=== PATIENT | male | born 1960 | race Caucasian/White ===

== ENCOUNTER 2017-01-23 11:32 | Emergency (ER) | payer OTHER ==
[2017-01-23] MEDS ORDERED: Sodium Chloride 0.9% 10 ML Syringe FLUSH PRN (11:58)
[2017-01-23] MEDS ORDERED: Sodium Chloride 0.9% 2.5 ML Syringe FLUSH PRN (11:58)
--- NOTE | 2017-01-23 12:08 | EDM.PDOC ---
ED HPI GENERAL MEDICAL PROBLEM - General Chief Complaint: Gastrointestinal Problem Stated Complaint: VOMITING Time Seen by Provider: 01/23/17 12:01 Source of Information: Reports: Patient History Limitations: Reports: No Limitations - History of Present Illness INITIAL COMMENTS - FREE TEXT/NARRATIVE: HISTORY AND PHYSICAL: []48-year-old male presenting with nausea and vomiting 4 days has vomited 4 times today History of Present Illness: []Patient started having difficulties on Wednesday before Thanks 4 days ago multiple episodes of vomiting unable to take down any fluids Review of Systems: As per history of present illness and below otherwise all systems reviewed and negative. Past medical history: As per history of present illness and as reviewed below otherwise noncontributory. Surgical history: As per history of present illness and as reviewed below otherwise noncontributory. Social history: No reported history of drug or alcohol abuse. Family history: As per history of present illness and as reviewed below otherwise noncontributory. Physical exam: Alert and oriented male. He has been complaining of having chills. Unable to keep fluids down answering questions in full sentences. Denies any diarrhea. HEENT: Atraumatic, normocehpalic, pupils reactive, negative for conjunctival pallor or scleral icterus, mucous membranes moist, throat clear, neck supple, nontender, trachea midline. Lungs: Clear to auscultation, breath sounds equal bilaterally, chest non tender. Heart: S1S2, regular, negative for clicks, rubs, or JVD. Abdomen: Soft, nondistended, nontender. Negative for masses or hepatossplenmegaly. Negative for costovertebral tenderness. Pelvis: Stable nontender. Genitourinary: Deferred. Rectal: Deferred Extremities: Atraumatic, negative for cords or calf pain. Neurovascular unremarkable. Neuro: Awake, alert, oriented. Cranial nerves II through XII unremarkable. Cerebellum unremarkable. Motor and sensory unremarkable throughout. Exam nonfocal. Patient tolerated all procedures well and he did eat some soup out vomiting Diagnostics: [CBC CMP lactic acid blood cultures [address] with contrast] Therapeutics: [1 L normal saline Zofran 4mg IV ] Impression: [Nausea vomiting dehydration] Plan: [Discharged to home Zofran 4 mg ODT per prescription 1 tab 3 times a day when necessary #12] All of with your primary care provider next week Definitive disposition and diagnosis as appropriate pending reevaluation and review of above. Onset: Sudden (4) Duration: Day(s): (4) Location: Reports: Abdomen abdominal pain Pain Score (Numeric/FACES): 8 - Related Data Allergies Allergy/AdvReac Type Severity Reaction Status Date / Time No Known Allergies Allergy Verified 01/23/17 11:53 Home Meds: Home Meds Apixaban [Eliquis] 1 tab PO DAILY 01/23/17 [History] Metoprolol Tartrate [Lopressor] 1 tab PO DAILY 01/23/17 [History] Ondansetron [Zofran ODT] 4 mg PO Q8H #12 tab.dis 01/23/17 [Rx] Past Medical History HEENT History: Reports: None Cardiovascular History: Reports: Afib Respiratory History: Reports: None Gastrointestinal History: Reports: None Genitourinary History: Reports: None Musculoskeletal History: Reports: None Neurological History: Reports: None Psychiatric History: Reports: None Endocrine/Metabolic History: Reports: None Hematologic History: Reports: None Immunologic History: Reports: None Oncologic (Cancer) History: Reports: None Dermatologic History: Reports: Other (See Below) Other Dermatologic History: Vein Surgery - Infectious Disease History Infectious Disease History: Reports: None - Past Surgical History Head Surgeries/Procedures: Reports: None Male Surgical History: Reports: Prostatectomy Social & Family History - Family History Family Medical History: Noncontributory - Tobacco Use Smoking Status *Q: Former Smoker Used Tobacco, but Quit: No - Caffeine Use Caffeine Use: Reports: Coffee - Recreational Drug Use Recreational Drug Use: No ED ROS GENERAL - Review of Systems Review Of Systems: ROS reveals no pertinent complaints other than HPI. ED EXAM, GI/ABD - Physical Exam Exam: See Below (See dictation) Course - Vital Signs Last Recorded V/S: Last Vital Signs Temp 37.2 C 01/23/17 14:18 Pulse 94 01/23/17 14:18 Resp 14 01/23/17 14:18 BP 127/94 H 01/23/17 14:18 Pulse Ox 97 01/23/17 14:18 - Orders/Labs/Meds Orders: Active Orders 24 hr Category Date Time Status Abdomen Pelvis w Cont [CT] Stat Exams 01/23/17 12:05 Taken CULTURE BLOOD [BC] Stat Lab 01/23/17 12:33 Received CULTURE BLOOD [BC] Stat Lab 01/23/17 13:21 Received Sodium Chloride 0.9% [Saline Flush] Med 01/23/17 11:58 Active 10 ml FLUSH ASDIRECTED PRN Sodium Chloride 0.9% [Saline Flush] Med 01/23/17 11:58 Active 2.5 ml FLUSH ASDIRECTED PRN Blood Culture x2 Reflex Set [OM.PC] Stat Oth 01/23/17 11:58 Ordered Saline Lock Insert [OM.PC] Stat Oth 01/23/17 11:58 Ordered Medication Orders Sodium Chloride (Saline Flush) 10 ml FLUSH ASDIRECTED PRN PRN Reason: Keep Vein Open Last Admin: 01/23/17 12:19 Dose: 10 ml Sodium Chloride (Saline Flush) 2.5 ml FLUSH ASDIRECTED PRN PRN Reason: Keep Vein Open Last Admin: 01/23/17 12:19 Dose: 2.5 ml Labs: Laboratory Tests 01/23/17 01/23/17 01/23/17 Range/Units 12:07 12:07 12:07 WBC 9.34 (4.0-11.0) K/uL RBC 5.09 (4.50-5.90) M/uL Hgb 17.6 H (13.0-17.0) g/dL Hct 48.9 (38.0-50.0) % MCV 96.1 (80.0-98.0) fL MCH 34.6 H (27.0-32.0) pg MCHC 36.0 (31.0-37.0) g/dL RDW Std Deviation 49.3 (28.0-62.0) fl RDW Coeff of Jarrod 14 (11.0-15.0) % Plt Count 143 L (150-400) K/uL MPV 11.00 (7.40-12.00) fL Neut % (Auto) 73.4 (48.0-80.0) % Lymph % (Auto) 14.7 L (16.0-40.0) % [place] % (Auto) 11.0 (0.0-15.0) % Eos % (Auto) 0.3 (0.0-7.0) % Baso % (Auto) 0.6 (0.0-1.5) % Neut # (Auto) 6.9 H (1.4-5.7) K/uL Lymph # (Auto) 1.4 (0.6-2.4) K/uL [place] # (Auto) 1.0 H (0.0-0.8) K/uL Eos # (Auto) 0.0 (0.0-0.7) K/uL Baso # (Auto) 0.1 (0.0-0.1) K/uL Nucleated RBC % 0.0 /100WBC Nucleated RBCs # 0 K/uL Lactate 2.6 H (0.20-2.00) mmol/L Sodium 133 L (136-146) mmol/L Potassium 3.2 L (3.5-5.1) mmol/L Chloride 96 L (98-110) mmol/L Carbon Dioxide 22 (21-31) mmol/L BUN 19 (6.0-23.0) mg/dL Creatinine 1.0 (0.6-1.5) mg/dL Est Cr Clr Drug Dosing 96.24 mL/min Estimated GFR (MDRD) > 60.0 ml/min Glucose 128 H (60-110) mg/dL Calcium 9.8 (8.8-10.8) mg/dL Total Bilirubin 3.5 H (0.1-1.5) mg/dL AST 34 (5-40) IU/L ALT 22 (8-54) IU/L Alkaline Phosphatase 71 (40-150) Total Protein 7.3 (6.0-8.0) g/dL Albumin 4.6 (3.5-5.0) g/dL Globulin 2.7 (2.0-3.5) g/dL Albumin/Globulin Ratio 1.7 (1.3-2.8) Urine Color Urine Appearance Urine pH (5.0-8.0) Ur Specific [place] (1.001-1.035) Urine Protein (NEGATIVE) mg/dL Urine Glucose (UA) (NEGATIVE) mg/dL Urine Ketones (NEGATIVE) mg/dL Urine Occult Blood (NEGATIVE) Urine Nitrite (NEGATIVE) Urine Bilirubin (NEGATIVE) Urine Urobilinogen (<2.0) EU/dL Ur Leukocyte Esterase (NEGATIVE) Urine RBC (0-2/HPF) Urine WBC (0-5/HPF) Ur Epithelial Cells (NONE-FEW) Urine Bacteria (NEGATIVE) 11/25/17 Range/Units 12:40 WBC (4.0-11.0) K/uL RBC (4.50-5.90) M/uL Hgb (13.0-17.0) g/dL Hct (38.0-50.0) % MCV (80.0-98.0) fL MCH (27.0-32.0) pg MCHC (31.0-37.0) g/dL RDW Std Deviation (28.0-62.0) fl RDW Coeff of Jarrod (11.0-15.0) % Plt Count (150-400) K/uL MPV (7.40-12.00) fL Neut % (Auto) (48.0-80.0) % Lymph % (Auto) (16.0-40.0) % [place] % (Auto) (0.0-15.0) % Eos % (Auto) (0.0-7.0) % Baso % (Auto) (0.0-1.5) % Neut # (Auto) (1.4-5.7) K/uL Lymph # (Auto) (0.6-2.4) K/uL [place] # (Auto) (0.0-0.8) K/uL Eos # (Auto) (0.0-0.7) K/uL Baso # (Auto) (0.0-0.1) K/uL Nucleated RBC % /100WBC Nucleated RBCs # K/uL Lactate (0.20-2.00) mmol/L Sodium (136-146) mmol/L Potassium (3.5-5.1) mmol/L Chloride (98-110) mmol/L Carbon Dioxide (21-31) mmol/L BUN (6.0-23.0) mg/dL Creatinine (0.6-1.5) mg/dL Est Cr Clr Drug Dosing mL/min Estimated GFR (MDRD) ml/min Glucose (60-110) mg/dL Calcium (8.8-10.8) mg/dL Total Bilirubin (0.1-1.5) mg/dL AST (5-40) IU/L ALT (8-54) IU/L Alkaline Phosphatase (40-150) Total Protein (6.0-8.0) g/dL Albumin (3.5-5.0) g/dL Globulin (2.0-3.5) g/dL Albumin/Globulin Ratio (1.3-2.8) Urine Color YELLOW Urine Appearance CLEAR Urine pH 6.5 (5.0-8.0) Ur Specific [place] <= 1.005 (1.001-1.035) Urine Protein NEGATIVE (NEGATIVE) mg/dL Urine Glucose (UA) NEGATIVE (NEGATIVE) mg/dL Urine Ketones NEGATIVE (NEGATIVE) mg/dL Urine Occult Blood NEGATIVE (NEGATIVE) Urine Nitrite NEGATIVE (NEGATIVE) Urine Bilirubin NEGATIVE (NEGATIVE) Urine Urobilinogen 1.0 (<2.0) EU/dL Ur Leukocyte Esterase NEGATIVE (NEGATIVE) Urine RBC 0-1 (0-2/HPF) Urine WBC 0-1 (0-5/HPF) Ur Epithelial Cells RARE (NONE-FEW) Urine Bacteria RARE (NEGATIVE) Meds: Medications Generic Name Dose Route Start Last Admin Trade Name Basim PRN Reason Stop Dose Admin Sodium Chloride 10 ml 01/23/17 11:58 01/23/17 12:19 Saline Flush FLUSH 10 ml ASDIRECTED PRN Administration Keep Vein Open Sodium Chloride 2.5 ml 01/23/17 11:58 01/23/17 12:19 Saline Flush FLUSH 2.5 ml ASDIRECTED PRN Administration Keep Vein Open Discontinued Medications Generic Name Dose Route Start Last Admin Trade Name Freq PRN Reason Stop Dose Admin Sodium Chloride 1,000 mls @ 999 mls/hr 01/23/17 12:15 01/23/17 12:16 Normal Saline IV 01/23/17 13:15 999 mls/hr .Bolus ONE Administration Sodium Chloride 1,000 mls @ 999 mls/hr 01/23/17 14:26 01/23/17 14:32 Normal Saline IV 01/23/17 15:26 999 mls/hr STAT ONE Administration Sodium Chloride 1,000 mls @ 999 mls/hr 01/23/17 15:09 01/23/17 15:30 Normal Saline IV 01/23/17 16:09 999 mls/hr STAT ONE Administration Iopamidol 100 ml 01/23/17 13:53 01/23/17 13:54 Isovue Multipack-370 (76%) IVPUSH 01/23/17 13:54 100 ml ONETIME STA Administration Ondansetron HCl 4 mg 01/23/17 12:13 01/23/17 12:15 Zofran IVPUSH 01/23/17 12:14 4 mg ONETIME ONE Administration Ondansetron HCl 4 mg 01/23/17 15:11 01/23/17 16:15 Zofran IVPUSH 01/23/17 15:12 4 mg ONETIME ONE Administration Departure - Departure Time of Disposition: 16:31 Disposition: Home, Self-Care 01 Condition: Good Clinical Impression: Dehydration Nausea & vomiting Qualifiers: Vomiting type: unspecified Vomiting Intractability: non-intractable Qualified Code(s): R11.2 - Nausea with vomiting, unspecified - Discharge Information Prescriptions: Ondansetron [Zofran ODT] 4 mg PO Q8H #12 tab.dis Instructions: Dehydration, Adult, [id number] Referrals: PCP,None [Primary Care Provider] - Forms: ED Department Discharge Additional Instructions: The following information is given to patients seen in the emergency department who are being discharged to home. This information is to outline your options for follow-up care. We provide all patients seen in our emergency department with a follow-up referral. The need for follow-up, as well as the timing and circumstances, are variable depending upon the specifics of your emergency department visit. If you don't have a primary care physician on staff, we will provide you with a referral. We always advise you to contact your personal physician following an emergency department visit to inform them of the circumstance of the visit and for follow-up with them and/or the need for any referrals to a consulting specialist. The emergency department will also refer you to a specialist when appropriate. This referral assures that you have the opportunity for followup care with a specialist. All of these measure are taken in an effort to provide you with optimal care, which includes your followup. Under all circumstances we always encourage you to contact your private physician who remains a resource for coordinating your care. When calling for followup care, please make the office aware that this follow-up is from your recent emergency room visit. If for any reason you are refused follow-up, please contact the [facility] emergency department at and asked to speak to the emergency department charge nurse. Zofran ODT 4 mg every 8 hours for nausea as needed #12 has been electronically sent to in the [facility] at [employer] - My Orders Last 24 Hours: My Active Orders 01/23/17 11:58 Sodium Chloride 0.9% [Saline Flush] 10 ml FLUSH ASDIRECTED PRN Sodium Chloride 0.9% [Saline Flush] 2.5 ml FLUSH ASDIRECTED PRN Blood Culture x2 Reflex Set [OM.PC] Stat Saline Lock Insert [OM.PC] Stat 01/23/17 12:05 Abdomen Pelvis w Cont [CT] Stat 01/23/17 12:33 CULTURE BLOOD [BC] Stat 01/23/17 13:21 CULTURE BLOOD [BC] Stat - Assessment/Plan Last 24 Hours: My Active Orders 01/23/17 11:58 Sodium Chloride 0.9% [Saline Flush] 10 ml FLUSH ASDIRECTED PRN Sodium Chloride 0.9% [Saline Flush] 2.5 ml FLUSH ASDIRECTED PRN Blood Culture x2 Reflex Set [OM.PC] Stat Saline Lock Insert [OM.PC] Stat 01/23/17 12:05 Abdomen Pelvis w Cont [CT] Stat 01/23/17 12:33 CULTURE BLOOD [BC] Stat 01/23/17 13:21 CULTURE BLOOD [BC] Stat
[2017-01-23] MEDS ORDERED: Ondansetron 4 MG/2 ML SDV IVPUSH ONE ×2 (12:13→15:11)
[2017-01-23] MEDS ORDERED: Sodium Chloride 0.9% 1,000 ML IV ONE ×3 (12:15→15:09)
[2017-01-23 13:03] LABS: CHLORIDE,CL 96 mmol/L (98-110); SODIUM,NA 133 mmol/L (136-146)
[2017-01-23] MEDS ORDERED: Iopamidol 755 MG/ML 500 ML Multipack Bottle IVPUSH STA (13:53)
--- NOTE | 2017-01-24 08:03 | CT ---
EXAM DATE: 01/23/17 PATIENT'S AGE: 56 Patient: CÉSAR LEACH Facility: [place], [place] Site . Site : 1960 Study: CT Abdomen/Pelvis [id number] 1:58:47 PM Ordering Physician: Doctor Maruicio Final Report: INDICATION: Nausea. Vomiting. Technique: Volumetric CT acquisition of the abdomen and pelvis following administration of 100 mL Isovue-370 intravenous contrast. Multiplanar reconstruction. Findings : The lung bases are clear. The liver and spleen are normal in size and without focal abnormality. The liver displays changes of diffuse fatty infiltration. No dilatation of the biliary system. The gallbladder is present. Pancreas and adrenal glands are normal. Kidneys normal in size, shape, and position. Both kidneys are functioning. No hydronephrosis. No renal masses or focal parenchymal abnormalities. Abdominal aorta normal in caliber and displays changes of atherosclerosis. No para-aortic or retrocrural lymphadenopathy. Normal bowel gas pattern. Thickening of the wall of the transverse colon. No inflammatory change in the adjacent fat. No strictures. Sigmoid diverticulosis without diverticulitis. The urinary bladder has a smooth contour. The fat planes surrounding the bladder and rectum are maintained. No free fluid in the abdomen and pelvis. No acute bony abnormality. Impression: 1. thickening of the wall of the transverse colon is a nonspecific finding which can be present in the face of inflammation or infection. No free air, free fluid, or abscess. 2. Sigmoid diverticulosis without diverticulitis. 3. Diffuse fatty infiltration of the liver. Please note that all CT scans at this facility use dose modulation, iterative reconstruction, and/or weight-based dosing when appropriate to reduce radiation dose to as low as reasonably achievable. Dictated by Anabella Pope MD @ Jan 23 2017 2:09PM (Electronic Signature) Report Signed by Proxy. [facility]
== END 2017-01-23 16:58 | disposition home or self-care (01) ==
LOC: MW.ED 11:32
DX: E86.0 Dehydration (principal); Z79.899 Other long term (current) drug therapy; Z87.891 Personal history of nicotine dependence
CPT/HCPCS: 36415; 74177; 80053; 81001; 83605; 85025; 87040; 96361; 96374; 96376; 99284; J2405; J7040; Q9967; 99283

== ENCOUNTER 2018-10-02 09:22 | Emergency (ER) | payer OTHER ==
[2018-10-02] MEDS ORDERED: Sodium Chloride 0.9% 10 ML Syringe FLUSH PRN (09:38)
[2018-10-02] MEDS ORDERED: Ondansetron 4 MG/2 ML SDV IVPUSH ONE (09:38)
[2018-10-02] MEDS ORDERED: Sodium Chloride 0.9% 2.5 ML Syringe FLUSH PRN (09:38)
[2018-10-02] MEDS ORDERED: Sodium Chloride 0.9% 1,000 ML IV ONE ×2 (09:38→10:44)
[2018-10-02] MEDS ORDERED: Pantoprazole 40 MG Vial IVPUSH ONE (09:38)
--- NOTE | 2018-10-02 09:43 | EDM.PDOC ---
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 The patient says that he had even more episodes of vomiting yesterday and has not been able to tolerate anything by mouth for the last 2 days and had a similar event for which she was seen here in December 2016. The patient lives in [facility] and is here working and back in 2017 he presented with 4 days of similar symptoms in a full workup including labs and a CAT scan of the abdomen and pelvis. I review those testing results. The CT revealed a fatty liver and a thickened transverse colon but no evidence for reasons for the vomiting. The patient tells me that when he went home to [place] he had an upper endoscopy and some other tests and his provider could not figure out why he had the vomiting. He says this is a very similar presentation. He says they felt hot and sweaty last night but he did not document a fever and he has had no chest pain or shortness of breath no urinary issues although he has had decreased urine output. He's had no black or bloody stools and no diarrhea. He says that he has some diffuse abdominal pain because of the vomiting but there was no pain prior to the nausea and vomiting. He says there is no one location that hurts him. He has no flank pain and he has no diagnosed GI or issues. He 's had no abdominal surgical history. He says that he drinks alcohol on a social basis and his last alcohol intake was last Wednesday Review of systems: As per history of present illness and below otherwise all systems reviewed and negative. Past medical history: As per history of present illness and as reviewed below otherwise noncontributory. Surgical history: As per history of present illness and as reviewed below otherwise noncontributory. Social history: No reported history of drug or alcohol abuse. Family history: As per history of present illness and as reviewed below otherwise noncontributory. Physical exam: General: Well-developed well-nourished man who is nontoxic and vital signs are noted by me HEENT: Atraumatic, normocephalic, pupils reactive, negative for conjunctival pallor or scleral icterus, mucous membranes pasty throat clear, neck supple, nontender, trachea midline. Lungs: Clear to auscultation, breath sounds equal bilaterally, chest nontender. Heart: S1S2, regular rhythm slightly tachycardic rate of my evaluation but no overt murmurs Abdomen: Soft, nondistended, nontender. Bowel sounds are slightly hypoactive and there is no tympany on percussion. There is no tenderness no rebound and no guarding on my examination Negative for masses or hepatosplenomegaly. Negative for costovertebral tenderness. Pelvis: Stable nontender. Genitourinary: Deferred. Rectal: Deferred. Extremities: Atraumatic, negative for cords or calf pain. Neurovascular unremarkable. Neuro: Awake, alert, oriented. Cranial nerves II through XII unremarkable. Cerebellum unremarkable. Motor and sensory unremarkable throughout. Exam nonfocal. Diagnostics: CBC CMP amylase lipase UA with reflex and culture Therapeutics: IV fluids Zofran Protonix The patient is currently finishing his first liter of IV fluids and will give a second liter. He says his nausea is much improved and when I re-question him about any abdominal pain he says that there was no precipitating abdominal discomfort and he has more of a generalized upper abdominal discomfort secondary to all the vomiting he has been doing. He is aware of his testing results and at this point I do not feel that imaging is indicated with the caveat that if he has any recurrent nausea and/or vomiting with a by mouth challenge that we will proceed to do radiologic evaluation. He is comfortable with the care plan at this point. He says he can again follow up with his provider back home in [place]. Patient has tolerated a by mouth challenge and looks much improved and feels much improved after the second liter of IV fluids. He is aware of the UA results and the urine culture will be sent. I will place him on Cipro and he does now to me that he had a prostate surgery and no longer has a prostate but he has never had a UTI before. I advised him to eat a bland diet and push hydration and for follow-up Impression: Vomiting and dehydration improving; UTI Definitive disposition and diagnosis as appropriate pending reevaluation and review of above. abd pain Pain Score (Numeric/FACES): 5 - Related Data Allergies Allergy/AdvReac Type Severity Reaction Status Date / Time No Known Allergies Allergy Verified 01/23/17 11:53 Home Meds: Home Meds Apixaban [Eliquis] 1 tab PO DAILY 01/23/17 [History] Metoprolol Tartrate [Lopressor] 1 tab PO DAILY 01/23/17 [History] Ondansetron [Zofran ODT] 4 mg PO Q8H #12 tab.dis 01/23/17 [Rx] Past Medical History HEENT History: Reports: None Cardiovascular History: Reports: Afib Respiratory History: Reports: None Gastrointestinal History: Reports: None Genitourinary History: Reports: None Musculoskeletal History: Reports: None Neurological History: Reports: None Psychiatric History: Reports: None Endocrine/Metabolic History: Reports: None Hematologic History: Reports: None Immunologic History: Reports: None Oncologic (Cancer) History: Reports: None Dermatologic History: Reports: Other (See Below) Other Dermatologic History: Vein Surgery - Infectious Disease History Infectious Disease History: Reports: None - Past Surgical History Head Surgeries/Procedures: Reports: None Male Surgical History: Reports: Prostatectomy Social & Family History - Family History Family Medical History: Noncontributory - Caffeine Use Caffeine Use: Reports: Coffee ED ROS GENERAL - Review of Systems Review Of Systems: ROS reveals no pertinent complaints other than HPI. ED EXAM, GENERAL - Physical Exam Exam: See Below (see dictation) Course - Vital Signs Last Recorded V/S: Last Vital Signs Temp 35.7 C 10/02/18 09:28 Pulse 93 10/02/18 09:28 Resp 18 10/02/18 09:28 BP 147/102 H 10/02/18 09:52 Pulse Ox 99 10/02/18 09:28 - Orders/Labs/Meds Orders: Active Orders 24 hr Category Date Time Status CULTURE URINE [RM] Stat Lab 10/02/18 12:16 Received Sodium Chloride 0.9% [Saline Flush] Med 10/02/18 09:38 Active 10 ml FLUSH ASDIRECTED PRN Sodium Chloride 0.9% [Saline Flush] Med 10/02/18 09:38 Active 2.5 ml FLUSH ASDIRECTED PRN Saline Lock Insert [OM.PC] Stat Oth 10/02/18 09:38 Ordered Medication Orders Sodium Chloride (Saline Flush) 10 ml FLUSH ASDIRECTED PRN PRN Reason: Keep Vein Open Sodium Chloride (Saline Flush) 2.5 ml FLUSH ASDIRECTED PRN PRN Reason: Keep Vein Open Labs: Laboratory Tests 10/02/18 10/02/18 10/02/18 Range/Units 09:42 09:42 12:16 WBC 13.11 H (4.0-11.0) K/uL RBC 5.32 (4.50-5.90) M/uL Hgb 18.3 H (13.0-17.0) g/dL Hct 50.2 H (38.0-50.0) % MCV 94.4 (80.0-98.0) fL MCH 34.4 H (27.0-32.0) pg MCHC 36.5 (31.0-37.0) g/dL RDW Std Deviation 46.8 (28.0-62.0) fl RDW Coeff of Jarrod 14 (11.0-15.0) % Plt Count 142 L (150-400) K/uL MPV 11.10 (7.40-12.00) fL Neut % (Auto) 83.4 H (48.0-80.0) % Lymph % (Auto) 6.2 L (16.0-40.0) % [place] % (Auto) 10.1 (0.0-15.0) % Eos % (Auto) 0.1 (0.0-7.0) % Baso % (Auto) 0.2 (0.0-1.5) % Neut # (Auto) 10.9 H (1.4-5.7) K/uL Lymph # (Auto) 0.8 (0.6-2.4) K/uL [place] # (Auto) 1.3 H (0.0-0.8) K/uL Eos # (Auto) 0.0 (0.0-0.7) K/uL Baso # (Auto) 0.0 (0.0-0.1) K/uL Nucleated RBC % 0.0 /100WBC Nucleated RBCs # 0 K/uL Sodium 132 L (136-148) mmol/L Potassium 3.9 (3.5-5.1) mmol/L Chloride 93 L (98-107) mmol/L Carbon Dioxide 28.5 (21.0-32.0) mmol/L BUN 20 H (7.0-18.0) mg/dL Creatinine 1.3 (0.8-1.3) mg/dL Est Cr Clr Drug Dosing 73.13 mL/min Estimated GFR (MDRD) 56.5 ml/min Glucose 193 H (74-106) mg/dL Calcium 10.1 (8.5-10.1) mg/dL Total Bilirubin 3.6 H (0.2-1.0) mg/dL AST 89 H (15-37) IU/L ALT 77 H (14-63) IU/L Alkaline Phosphatase 88 (46-116) U/L Total Protein 8.3 H (6.4-8.2) g/dL Albumin 5.0 (3.4-5.0) g/dL Globulin 3.3 (2.6-4.0) g/dL Albumin/Globulin Ratio 1.5 (0.9-1.6) Amylase 26 (25-115) U/L Lipase 229 (73-393) U/L Urine Color DARK YELLOW Urine Appearance SLT CLOUDY Urine pH 6.0 (5.0-8.0) Ur Specific [place] 1.025 (1.001-1.035) Urine Protein 100 H (NEGATIVE) mg/dL Urine Glucose (UA) 100 H (NEGATIVE) mg/dL Urine Ketones TRACE H (NEGATIVE) mg/dL Urine Occult Blood TRACE-INTACT H (NEGATIVE) Urine Nitrite POSITIVE H (NEGATIVE) Urine Bilirubin MODERATE H (NEGATIVE) Urine Ictotest NEGATIVE Urine Urobilinogen 2.0 H (<2.0) EU/dL Ur Leukocyte Esterase NEGATIVE (NEGATIVE) Urine RBC 0-3 (0-2/HPF) Urine WBC 2-5 (0-5/HPF) Ur Epithelial Cells FEW (NONE-FEW) Amorphous Sediment LIGHT (NEGATIVE) Urine Bacteria 1+ H (NEGATIVE) Urine Mucus LIGHT (NONE-MOD) Meds: Medications Generic Name Dose Route Start Last Admin Trade Name Freq PRN Reason Stop Dose Admin Sodium Chloride 10 ml 10/02/18 09:38 Saline Flush FLUSH ASDIRECTED PRN Keep Vein Open Sodium Chloride 2.5 ml 10/02/18 09:38 Saline Flush FLUSH ASDIRECTED PRN Keep Vein Open Discontinued Medications Generic Name Dose Route Start Last Admin Trade Name Freq PRN Reason Stop Dose Admin Sodium Chloride 1,000 mls @ 999 mls/hr 10/02/18 09:38 10/02/18 09:52 Normal Saline IV 10/02/18 10:38 999 mls/hr STAT ONE Administration Sterile Water Confirm 10/02/18 09:49 Sterile Water For Injection Administered 10/02/18 09:50 Dose 20 mls @ as directed .ROUTE .STK-MED ONE Sodium Chloride 1,000 mls @ 999 mls/hr 10/02/18 10:44 10/02/18 11:07 Normal Saline IV 10/02/18 11:44 999 mls/hr STAT ONE Administration Ondansetron HCl 4 mg 10/02/18 09:38 10/02/18 09:52 Zofran IVPUSH 10/02/18 09:39 4 mg ONETIME ONE Administration Pantoprazole Sodium 80 mg 10/02/18 09:38 10/02/18 09:52 Protonix Iv IVPUSH 10/02/18 09:39 80 mg .BOLUS ONE Administration Departure - Departure Time of Disposition: 12:37 Disposition: Home, Self-Care 01 Condition: Good Clinical Impression: Vomiting, Dehydration, UTI, Urinary tract infectious disease - Discharge Information Referrals: PCP,None [Primary Care Provider] - Forms: ED Department Discharge Additional Instructions: The following information is given to patients seen in the emergency department who are being discharged to home. This information is to outline your options for follow-up care. We provide all patients seen in our emergency department with a follow-up referral. The need for follow-up, as well as the timing and circumstances, are variable depending upon the specifics of your emergency department visit. If you don't have a primary care physician on staff, we will provide you with a referral. We always advise you to contact your personal physician following an emergency department visit to inform them of the circumstance of the visit and for follow-up with them and/or the need for any referrals to a consulting specialist. The emergency department will also refer you to a specialist when appropriate. This referral assures that you have the opportunity for followup care with a specialist. All of these measure are taken in an effort to provide you with optimal care, which includes your followup. Under all circumstances we always encourage you to contact your private physician who remains a resource for coordinating your care. When calling for followup care, please make the office aware that this follow-up is from your recent emergency room visit. If for any reason you are refused follow-up, please contact the [facility] emergency department at and ask to speak to the emergency department charge nurse. [facility] Primary care- Internal Medicine and Family [address] [address] Push hydration such as water and Gatorade and avoid caffeinated products and alcohol as these liquids dehydrate you. Eat a bland diet for the next 24-36 hours pushing the clear liquids. Use Zofran you have been given for nausea and vomiting. Take the antibiotics you have been prescribed until they're finished, ciprofloxacin. This connect with one of our providers in the clinic or with your provider at home in [place] for further care and reevaluation of the symptoms. Return to ER as needed and as discussed. A urine culture has been sent and if there is a need for change of antibiotics he will be contacted. - My Orders Last 24 Hours: My Active Orders 10/02/18 09:38 Sodium Chloride 0.9% [Saline Flush] 10 ml FLUSH ASDIRECTED PRN Sodium Chloride 0.9% [Saline Flush] 2.5 ml FLUSH ASDIRECTED PRN Saline Lock Insert [OM.PC] Stat 10/02/18 12:16 CULTURE URINE [RM] Stat - Assessment/Plan Last 24 Hours: My Active Orders 10/02/18 09:38 Sodium Chloride 0.9% [Saline Flush] 10 ml FLUSH ASDIRECTED PRN Sodium Chloride 0.9% [Saline Flush] 2.5 ml FLUSH ASDIRECTED PRN Saline Lock Insert [OM.PC] Stat 10/02/18 12:16 CULTURE URINE [RM] Stat
[2018-10-02] MEDS ORDERED: Water For Injection, Sterile 20 ML ONE (09:49)
[2018-10-02 10:29] LABS: CARBON DIOXIDE,CO2 28.5 mmol/L (21.0-32.0); POTASSIUM,K 3.9 mmol/L (3.5-5.1)
== END 2018-10-02 12:50 | disposition home or self-care (01) ==
LOC: MW.ED 09:22
DX: E86.0 Dehydration (principal); N39.0 Urinary tract infection, site not specified; R11.2 Nausea with vomiting, unspecified; I10 Essential (primary) hypertension; I48.91 Unspecified atrial fibrillation; Z86.718 Personal history of other venous thrombosis and embolism; Z79.01 Long term (current) use of anticoagulants; Z79.899 Other long term (current) drug therapy
CPT/HCPCS: 36415; 80053; 81001; 82150; 83690; 85025; 87086; 96361; 96374; 96375; 99284; C9113; J2405; J7040; 99282

== ENCOUNTER 2019-08-21 15:20 | Emergency (ER) | payer OTHER ==
[2019-08-21] MEDS ORDERED: Sodium Chloride 0.9% 2.5 ML Syringe FLUSH PRN (15:59)
[2019-08-21] MEDS ORDERED: Sodium Chloride 0.9% 10 ML Syringe FLUSH PRN (15:59)
[2019-08-21] MEDS ORDERED: Sodium Chloride 0.9% 10 ML SDV IV PRN (15:59)
[2019-08-21] MEDS ORDERED: Acetaminophen 500 MG Tab PO ONE (15:59)
[2019-08-21] MEDS ORDERED: Lidocaine 5% 700 MG Patch TOP ONE (16:00)
--- NOTE | 2019-08-21 16:00 | EDM.PDOC ---
ED HPI GENERAL MEDICAL PROBLEM - General Chief Complaint: General Stated Complaint: FELL AND INJURED RIBS Time Seen by Provider: 08/21/19 15:29 Source of Information: Reports: Patient History Limitations: Reports: No Limitations - History of Present Illness INITIAL COMMENTS - FREE TEXT/NARRATIVE: 58-year-old male past medical history paroxysmal atrial fibrillation, DVT (on warfarin), status post prostatectomy presenting with complaints of pain after a fall. Approximately 36 hours ago, the patient was using the restroom. When he went to leave, he accidentally fell and struck the left side of his thorax on the bathtub. Since then, he has had persistent pain to the left lateral chest over his ribs. He did not strike his head or lose consciousness. Denies any gross hematuria. No headache, neck pain, back pain, chest or frontal abdominal pain, extremity pain. Intermittently taking acetaminophen without relief. left lower rib pain Pain Score (Numeric/FACES): 10 - Related Data Allergies Allergy/AdvReac Type Severity Reaction Status Date / Time No Known Allergies Allergy Verified 08/21/19 15:30 Home Meds: Home Meds Apixaban [Eliquis] 1 tab PO DAILY 01/23/17 [History] Metoprolol Tartrate [Lopressor] 1 tab PO DAILY 01/23/17 [History] oxyCODONE 5 - 10 mg PO Q6H PRN #15 tab 08/21/19 [Rx] Past Medical History HEENT History: Reports: None Cardiovascular History: Reports: Afib, Blood Clots/VTE/DVT Respiratory History: Reports: None Gastrointestinal History: Reports: None Genitourinary History: Reports: None Musculoskeletal History: Reports: None Neurological History: Reports: None Psychiatric History: Reports: None Endocrine/Metabolic History: Reports: None Hematologic History: Reports: None Immunologic History: Reports: None Oncologic (Cancer) History: Reports: None Dermatologic History: Reports: Other (See Below) Other Dermatologic History: Vein Surgery - Infectious Disease History Infectious Disease History: Reports: Chicken Pox - Past Surgical History Head Surgeries/Procedures: Reports: None Male Surgical History: Reports: Prostatectomy Musculoskeletal Surgical History: Reports: Shoulder Surgery Social & Family History - Family History Family Medical History: Noncontributory - Tobacco Use Smoking Status *Q: Former Smoker Used Tobacco, but Quit: Yes Month/Year Tobacco Last Used: 1978 - Caffeine Use Caffeine Use: Reports: None - Recreational Drug Use Recreational Drug Use: No ED ROS GENERAL - Review of Systems Review Of Systems: See Below Constitutional: Denies: Fever HEENT: Reports: No Symptoms Respiratory: Denies: Shortness of Breath Cardiovascular: Reports: Chest Pain Endocrine: Denies: Fatigue GI/Abdominal: Denies: Abdominal Pain, Black Stool, Bloody Stool, Diarrhea, Nausea, Vomiting : Denies: Hematuria Musculoskeletal: Denies: Neck Pain, Shoulder Pain, Arm Pain, Back Pain, Hand Pain, Leg Pain, Foot Pain Skin: Denies: Wound Neurological: Denies: Headache, Seizure, Syncope ED EXAM, GENERAL - Physical Exam Exam: See Below Free Text/Narrative:: Vital signs reviewed. Nursing notes reviewed. Constitutional: Awake, alert, non-distressed. Head: Normocephalic, atraumatic. Eyes: EOMI, conjunctiva normal, no discharge, no scleral icterus. Ears, Nose, Throat: External ears and nose normal, moist oral mucosa. Neck: Nontender, full range of motion Cardiovascular: 2+ radial pulse, capillary refill less than 2 seconds Pulmonary: normal work of breathing, no accessory muscle use. CTA BL Abdomen/GI: Soft, nontender, nondistended, no guarding or rigidity, no masses. Musculoskeletal: No deformities. Moderate tenderness to the left lateral chest over the ribs. No paradoxical motion. No crepitus. Integumentary: Appropriate color for ethnicity, warm, dry, no pallor or jaundice, no rash. Neurologic: Alert, answering questions appropriately, normal speech, no facial droop, moving all extremities well. Psychiatric: Appropriate mood and affect, normal thought process. Course - Vital Signs Text/Narrative:: 58-year-old male with left-sided chest pain after a fall. Patient hemodynamically stable, afebrile, well-appearing, looks nontoxic. Differential diagnosis includes but is not limited to: Rib fractures, rib contusion, pneumothorax, hemothorax, pleural effusion, pericardial effusion, intra-abdominal hemorrhage, splenic injury, etc. Mildly tachycardic on arrival and mildly hypertensive. Well-appearing. Labs show mild thrombocytopenia, mild hypokalemia 3.4. Normal renal function. Mildly elevated bilirubin at 1.2. Normal lipase. CT imaging of the chest abdomen and pelvis demonstrated a fracture of the left #10 rib. Also noted fatty liver. Treated with Tylenol and a lidocaine patch with good relief of pain. Patient stable discharge home with outpatient primary care follow-up. Recommended [id number] acetaminophen and lidocaine patches along with heat. Short course of oxycodone prescribed. [place] PDMP queried, no entries noted. Also given an incentive spirometer. Counseled about need to have bilirubin rechecked at next scheduled primary care appointment. All ques tions answered prior to being discharged in good condition. Last Recorded V/S: Last Vital Signs Temp 36.4 C 08/21/19 18:38 Pulse 91 08/21/19 18:38 Resp 18 08/21/19 18:38 BP 150/97 H 08/21/19 18:38 Pulse Ox 98 08/21/19 18:38 - Orders/Labs/Meds Orders: Active Orders 24 hr Category Date Time Status Sodium Chloride 0.9% [Normal Saline] Med 08/21/19 15:59 Active 10 ml IV ASDIRECTED PRN Sodium Chloride 0.9% [Saline Flush] Med 08/21/19 15:59 Active 10 ml FLUSH ASDIRECTED PRN Sodium Chloride 0.9% [Saline Flush] Med 08/21/19 15:59 Active 2.5 ml FLUSH ASDIRECTED PRN Peripheral IV Insertion Adult [OM.PC] Stat Oth 08/21/19 15:59 Ordered Medication Orders Sodium Chloride (Saline Flush) 10 ml FLUSH ASDIRECTED PRN PRN Reason: Keep Vein Open Sodium Chloride (Saline Flush) 2.5 ml FLUSH ASDIRECTED PRN PRN Reason: Keep Vein Open Sodium Chloride (Normal Saline) 10 ml IV ASDIRECTED PRN PRN Reason: IV Use Labs: Laboratory Tests 08/21/19 08/21/19 Range/Units 16:22 16:22 WBC 7.67 (4.0-11.0) K/uL RBC 4.62 (4.50-5.90) M/uL Hgb 15.3 (13.0-17.0) g/dL Hct 44.4 (38.0-50.0) % MCV 96.1 (80.0-98.0) fL MCH 33.1 H (27.0-32.0) pg MCHC 34.5 (31.0-37.0) g/dL RDW Std Deviation 49.5 (28.0-62.0) fl RDW Coeff of Jarrod 14 (11.0-15.0) % Plt Count 129 L (150-400) K/uL MPV 10.90 (7.40-12.00) fL Neut % (Auto) 61.0 (48.0-80.0) % Lymph % (Auto) 24.1 (16.0-40.0) % Prentiss % (Auto) 12.6 (0.0-15.0) % Eos % (Auto) 1.8 (0.0-7.0) % Baso % (Auto) 0.5 (0.0-1.5) % Neut # (Auto) 4.7 (1.4-5.7) K/uL Lymph # (Auto) 1.9 (0.6-2.4) K/uL Prentiss # (Auto) 1.0 H (0.0-0.8) K/uL Eos # (Auto) 0.1 (0.0-0.7) K/uL Baso # (Auto) 0.0 (0.0-0.1) K/uL Nucleated RBC % 0.0 /100WBC Nucleated RBCs # 0 K/uL Sodium 135 L (136-148) mmol/L Potassium 3.4 L (3.5-5.1) mmol/L Chloride 97 L (98-107) mmol/L Carbon Dioxide 28.8 (21.0-32.0) mmol/L BUN 31 H (7.0-18.0) mg/dL Creatinine 1.2 (0.8-1.3) mg/dL Est Cr Clr Drug Dosing 78.24 mL/min Estimated GFR (MDRD) > 60.0 ml/min Glucose 95 (74-106) mg/dL Calcium 9.4 (8.5-10.1) mg/dL Total Bilirubin 1.2 H (0.2-1.0) mg/dL AST 42 H (15-37) IU/L ALT 45 (14-63) IU/L Alkaline Phosphatase 59 (46-116) U/L Total Protein 7.3 (6.4-8.2) g/dL Albumin 4.4 (3.4-5.0) g/dL Globulin 2.9 (2.6-4.0) g/dL Albumin/Globulin Ratio 1.5 (0.9-1.6) Lipase 307 (73-393) U/L Meds: Medications Generic Name Dose Route Start Last Admin Trade Name Basim PRN Reason Stop Dose Admin Sodium Chloride 10 ml 08/21/19 15:59 Saline Flush FLUSH ASDIRECTED PRN Keep Vein Open Sodium Chloride 2.5 ml 08/21/19 15:59 Saline Flush FLUSH ASDIRECTED PRN Keep Vein Open Sodium Chloride 10 ml 08/21/19 15:59 Normal Saline IV ASDIRECTED PRN IV Use Discontinued Medications Generic Name Dose Route Start Last Admin Trade Name Freq PRN Reason Stop Dose Admin Acetaminophen 1,000 mg 08/21/19 15:59 08/21/19 16:24 Tylenol Extra Strength PO 08/21/19 16:00 1,000 mg ONETIME ONE Administration Iopamidol 100 ml 08/21/19 17:53 08/21/19 17:54 Isovue-370 (76%) IVPUSH 08/21/19 17:54 100 ml ONETIME ONE Administration Lidocaine 700 mg 08/21/19 16:00 08/21/19 16:24 Lidoderm 5% TOP 08/21/19 16:01 700 mg ONETIME ONE Administration Departure - Departure Time of Disposition: 18:30 Disposition: Home, Self-Care 01 Condition: Good Clinical Impression: Elevated bilirubin Accidental fall Qualifiers: Encounter type: initial encounter Qualified Code(s): W19.XXXA - Unspecified fall, initial encounter Left rib fracture Qualifiers: Encounter type: initial encounter Rib fracture type: single rib Fracture type: closed Qualified Code(s): S22.32XA - Fracture of one rib, left side, initial encounter for closed fracture - Discharge Information *PRESCRIPTION DRUG MONITORING PROGRAM REVIEWED*: Not Applicable *COPY OF PRESCRIPTION DRUG MONITORING REPORT IN PATIENT SADIE: Not Applicable Prescriptions: oxyCODONE 5 - 10 mg PO Q6H PRN #15 tab PRN Reason: Pain (Severe 7-10) Instructions: Fall Prevention in the Home, Adult, [id number], Rib Fracture Referrals: [facility] - [facility] [Provider Group] - 2 Weeks (For follow-up of rib fracture and to have your bilirubin level rechecked.) Forms: ED Department Discharge Additional Instructions: Thank you for choosing the [facility] emergency department in [place] for your medical needs today. It was a pleasure caring for you. You were seen in the emergency department for evaluation after a fall. We found that 1 of your ribs was broken on the left side. This should heal with time. I recommend [id number] extra strength acetaminophen (1000 mg every 6 hours) and ibuprofen (400 mg every 6 hours) to help treat your pain. I also recommend [id number]-[id number] lidocaine patches and heating pad. If these do not control your pain and your pain is severe, you should come back to the emergency department. You should also return if you have trouble breathing. Your bilirubin level was slightly elevated when we checked it today. This can be due to multiple things including alcohol consumption or excess fat in the liver. I would recommend you have it rechecked by your primary doctor in the next 1 to 2 months. In the meantime I would recommend avoiding alcohol. Please return the emergency department immediately if your symptoms worsen or if you feel worse. The following information is given to patients seen in the emergency department who are being discharged. This information is to outline your options for follow-up care. We provide all patients seen in our emergency department with a follow-up referral. The need for follow-up, as well as the timing and circumstances, are variable depending upon the specifics of your emergency department visit. If you don't have a primary care physician on staff, we will provide you with a referral. We always advise you to contact your personal physician following an emergency department visit to inform them of the circumstance of the visit and for follow-up with them and/or the need for any referrals to a consulting specialist. The emergency department will also refer you to a specialist when appropriate. This referral assures that you have the opportunity for follow-up care with a specialist. All of these measure are taken in an effort to provide you with optimal care, which includes your follow-up. Under all circumstances we always encourage you to contact your private physician who remains a resource for coordinating your care. When calling for follow-up care, please make the office aware that this follow-up is from your recent emergency room visit. If for any reason you are refused follow-up, please contact the [facility] Emergency Department at and asked to speak to the emergency department charge nurse. If you do not have a primary care physician that is caring for you, you can contact these clinics below to set up an appointment to establish care: [facility] - Primary Care [address] [place] [address] [facility] [address] [place] [id number] Sepsis Event Note (ED) - Evaluation Sepsis Screening Result: No Definite Risk - Focused Exam Vital Signs: Vital Signs Temp Pulse Resp BP Pulse Ox 08/21/19 18:38 36.4 C 91 18 150/97 H 98 08/21/19 15:30 36.2 C 101 H 18 156/104 H 99 - My Orders Last 24 Hours: My Active Orders 08/21/19 15:59 Sodium Chloride 0.9% [Normal Saline] 10 ml IV ASDIRECTED PRN Sodium Chloride 0.9% [Saline Flush] 10 ml FLUSH ASDIRECTED PRN Sodium Chloride 0.9% [Saline Flush] 2.5 ml FLUSH ASDIRECTED PRN Peripheral IV Insertion Adult [OM.PC] Stat - Assessment/Plan Last 24 Hours: My Active Orders 08/21/19 15:59 Sodium Chloride 0.9% [Normal Saline] 10 ml IV ASDIRECTED PRN Sodium Chloride 0.9% [Saline Flush] 10 ml FLUSH ASDIRECTED PRN Sodium Chloride 0.9% [Saline Flush] 2.5 ml FLUSH ASDIRECTED PRN Peripheral IV Insertion Adult [OM.PC] Stat
[2019-08-21 17:07] LABS: BLOOD UREA NITROGEN,BUN 31 mg/dL (7.0-18.0); CARBON DIOXIDE,CO2 28.8 mmol/L (21.0-32.0); CHLORIDE,CL 97 mmol/L (98-107); GLUCOSE RANDOM 95 mg/dL (74-106); LIPASE 307 U/L (73-393); POTASSIUM,K 3.4 mmol/L (3.5-5.1); SODIUM,NA 135 mmol/L (136-148)
[2019-08-21] MEDS ORDERED: Iopamidol 755 Mg/ML 100 ML Bottle IVPUSH ONE (17:53)
--- NOTE | 2019-08-21 18:23 | CT ---
CT abdomen and pelvis Technique: Multiple axial sections were obtained from above the dome of the diaphragm inferiorly through the pubic symphysis. Intravenous contrast was utilized. No oral contrast has been given. Comparison: Previous CT abdomen and pelvis study of 01/23/17. Findings: Visualized lung bases show nothing acute. Fatty infiltration is seen within the liver. No focal abnormality is appreciated within the liver. Spleen shows no focal abnormality. Adrenal glands show no nodule. Kidneys show symmetric contrast enhancement without hydronephrosis or mass. Small nodule off the inferior spleen is compatible with accessory splenic tissue. Pancreas is normal. Gallbladder contains no calcified gallstones. Atherosclerotic calcification is noted within the aortoiliac arteries. No aneurysm is seen. No retroperitoneal adenopathy or mesenteric abnormalities are seen. Diverticuli are noted within the sigmoid colon with no evidence of diverticulitis. Appendix is felt to be visualized and is normal in size. Bone window settings were reviewed. Fracture is noted within the left 10th rib. No other acute osseous finding is appreciated. Disc space narrowing noted at L5-S1 with vacuum disc phenomena. Impression: 1. Acute fracture within the left 10th rib. 2. Other findings as noted above. No other acute abnormality is seen. Diagnostic code #3 This report was dictated in MDT
--- NOTE | 2019-08-21 18:23 | CT ---
CT chest Technique: Multiple axial sections were obtained from above the lung apices inferiorly through the lung bases. Intravenous contrast was utilized. Comparison: No prior chest imaging is available. Findings: Mediastinum and hilar region show no adenopathy. Aorta shows no aneurysm. Heart size is slightly enlarged. Lungs show no acute parenchymal change. No pleural effusions or pneumothorax is appreciated. Fracture is again seen within the left 10th rib. No additional rib fracture is appreciated. Reconstructed sagittal images of the sternum appear intact. Vertebral body heights are maintained within the thoracic spine with no abnormal subluxation. No compression deformities are seen. Impression: 1. Fracture within the left 10th rib is again noted. 2. Nothing acute is otherwise seen on CT study of the chest. Diagnostic code #3 This report was dictated in MDT
== END 2019-08-21 18:42 | disposition home or self-care (01) ==
LOC: MW.ED 15:20
DX: S22.32XA Fracture of one rib, left side, initial encounter for closed fracture (principal); E80.6 Other disorders of bilirubin metabolism; I48.91 Unspecified atrial fibrillation; Z79.899 Other long term (current) drug therapy; Z87.891 Personal history of nicotine dependence; Z86.718 Personal history of other venous thrombosis and embolism; Z79.01 Long term (current) use of anticoagulants; W22.8XXA Striking against or struck by other objects, initial encounter
CPT/HCPCS: 36415; 71260; 74177; 80053; 83690; 85025; 99285; A9270; Q9967; 99283

== ENCOUNTER 2020-08-03 08:49 | Emergency (ER) | payer BC, OTHER ==
--- NOTE | 2020-08-03 09:17 | EDM.PDOC ---
ED HPI GENERAL MEDICAL PROBLEM - General Stated Complaint: N/V AND NOTE FOR WORK Time Seen by Provider: 08/03/20 09:04 - History of Present Illness INITIAL COMMENTS - FREE TEXT/NARRATIVE: HISTORY AND PHYSICAL: History of present illness: This is a 59-year-old gentleman with no history significant for hypertension, diabetes, liver, lung, kidney problems who presents ER today's requesting a work note to return to work today patient feels much better. Patient reports that he has been having episodes of nausea and vomiting for 3 days. Patient reports he missed 3 days of work and before he is allowed to return he needs a note from a doctor saying that he is okay to return. Patient denies any recent fevers, shakes, chills. Patient denies any diarrhea. Patient has a dysuria, frequency, urgency. Patient has any change in the color of the stool or urine. Patient denies any melena or bright red blood per rectum. Patient denies any jay colored stool or tea colored urine. Patient denies any abdominal pain or discomfort. Patient reports he does have a history of heavy alcohol use in the past however he stopped drinking approximately 4 to 5 months ago. Patient reports that he did have a significant mount of alcohol on Wednesday when he went out to the boat to go fishing however he has not drank since. Patient reports he does not feel that he has any discoloration to his eyes or skin or itching. Review of systems: As per history of present illness and below otherwise all systems reviewed and negative. Past medical history: As per history of present illness and as reviewed below otherwise noncontributory. Surgical history: As per history of present illness and as reviewed below otherwise noncontributory. Social history: No reported history of drug abuse. Family history: As per history of present illness and as reviewed below otherwise noncontributory. Physical exam: This patient was seen and evaluated during the 2019 SARS-CoV-2 novel coronavirus pandemic period. Community viral transmission is ongoing at time of this encounter and the emergency department is operating under pandemic response procedures. Constitutional: Patient is oriented to person, place, and time. Appears well- developed and well-nourished. No distress. HEENT: Moist mucous membranes Head: Normocephalic and atraumatic Eyes: Right eye exhibits no discharge. Left eye exhibits no discharge. [place] sclera with slight icterus Neck: Normal range of motion. No tracheal deviation present. Cardiovascular: Normal rate and regular rhythm. Pulmonary: Effort normal, no respiratory distress. Abd: Soft, nondistended, no rebound/guarding, no psoas or obturator signs, no tenderness at Mcberney's point, no Duque's sign. Pt does not present with an exam that would be consistent with an acute surgical abdomen at this time Musculoskeletal: Normal range of motion Neurologic: Alert and oriented to person, place and time. Skin: [place], warm and dry. Slightly jaundiced Psychiatric: Normal mood and affect. Behavior is normal. Judgment and thought content normal. Nursing note and vital signs have been reviewed Diagnostics: Patient adamantly refusing any blood work. Patient reports he feels well and does not want to be worked up for liver problems. Patient reports that he just wants to return to work and is requesting a work note. I have discussed with the patient my concern with the possibility of hepatitis A, B, C, alcohol- related liver disease and the need for further evaluation. Patient understands my concern with progressing worsening in acute liver disease. Patient denies any significant acetaminophen level use. In reviewing the patient's old lab work, patient does have a history of hyperbilirubinemia with a bilirubin of 3.5 in the past. Therapeutics: [] Assessment and plan: 59-year-old gentleman who presents ER today requesting a work note because he missed work for 3 days and they will not let him return until he gets a doctor's note. Patient is clinically and hemodynamically stable here in the ED. Patient vital signs are all within normal limits. Patient physical exam is unremarkable except for jaundice and icterus. Patient will be discharged with a work note and instructions to return to the ER or go to his doctor to get blood work when he can. Patient understands my concern with possibility of hepatitis. Definitive disposition and diagnosis as appropriate pending reevaluation and review of above. - Related Data Allergies Allergy/AdvReac Type Severity Reaction Status Date / Time No Known Allergies Allergy Verified 08/03/20 09:07 Home Meds: Home Meds Apixaban [Eliquis] 1 tab PO DAILY 01/23/17 [History] Metoprolol Tartrate [Lopressor] 1 tab PO DAILY 01/23/17 [History] oxyCODONE 5 - 10 mg PO Q6H PRN #15 tab 08/21/19 [Rx] Past Medical History HEENT History: Reports: None Cardiovascular History: Reports: Afib, Blood Clots/VTE/DVT Respiratory History: Reports: None Gastrointestinal History: Reports: None Genitourinary History: Reports: None Musculoskeletal History: Reports: None Neurological History: Reports: None Psychiatric History: Reports: None Endocrine/Metabolic History: Reports: None Hematologic History: Reports: None Immunologic History: Reports: None Oncologic (Cancer) History: Reports: None Dermatologic History: Reports: Other (See Below) Other Dermatologic History: Vein Surgery - Infectious Disease History Infectious Disease History: Reports: Chicken Pox - Past Surgical History Head Surgeries/Procedures: Reports: None Male Surgical History: Reports: Prostatectomy Musculoskeletal Surgical History: Reports: Shoulder Surgery Social & Family History - Family History Family Medical History: No Pertinent Family History - Caffeine Use Caffeine Use: Reports: None ED ROS GENERAL - Review of Systems Review Of Systems: See Below ED EXAM, GENERAL - Physical Exam Exam: See Below Departure - Departure Time of Disposition: 09:15 Disposition: Home, Self-Care 01 Clinical Impression: Jaundice, Vomiting, Encounter for medical screening examination Nausea & vomiting Qualifiers: Vomiting type: unspecified Vomiting Intractability: non-intractable Qualified Code(s): R11.2 - Nausea with vomiting, unspecified - Discharge Information Instructions: Medical Screening Exam, Jaundice, Adult, [id number], Nausea and Vomiting, Adult Referrals: PCP,None [Primary Care Provider] - Additional Instructions: You were seen and evaluated in the ER today requesting a note to return to work. You are medically stable to return to work however on exam you do have jaundice and icterus to your eyes. We are recommending that he have blood work done however at this time you are refusing. Please make an appointment to see your doctor to get routine blood work done and have further evaluation for your jaundice. It appears that in the past that you have had elevated bilirubin levels. I would recommend that you do not utilize any alcohol or utilize any acetaminophen or other drugs that can affect your liver until you are cleared by your primary care physician. The following information is given to patients seen in the emergency department who are being discharged to home. This information is to outline your options for follow-up care. We provide all patients seen in our emergency department with a follow-up referral. The need for follow-up, as well as the timing and circumstances, are variable depending upon the specifics of your emergency department visit. If you don't have a primary care physician on staff, we will provide you with a referral. We always advise you to contact your personal physician following an emergency department visit to inform them of the circumstance of the visit and for follow-up with them and/or the need for any referrals to a consulting specialist. The emergency department will also refer you to a specialist when appropriate. This referral assures that you have the opportunity for follow-up care with a specialist. All of these measure are taken in an effort to provide you with optimal care, which includes your follow-up. Under all circumstances we always encourage you to contact your private physician who remains a resource for coordinating your care. When calling for follow-up care, please make the office aware that this follow-up is from your recent emergency room visit. If for any reason you are refused follow-up, please contact the [facility] Emergency Department at and asked to speak to the emergency department charge nurse. [facility] - Primary Care [address] [place] [address] [id number] [address] [address]
== END 2020-08-03 09:25 | disposition home or self-care (01) ==
LOC: MW.ED 08:49
DX: Z00.00 Encounter for general adult medical examination without abnormal findings (principal); R11.2 Nausea with vomiting, unspecified; R17 Unspecified jaundice; Z79.01 Long term (current) use of anticoagulants
CPT/HCPCS: 99282; 99283

== ENCOUNTER 2020-12-22 08:00 | Emergency (ER) | payer BC ==
--- NOTE | 2020-12-22 08:50 | EDM.PDOC ---
ED HPI GENERAL MEDICAL PROBLEM - General Chief Complaint: Gastrointestinal Problem Stated Complaint: VOMMITTING Time Seen by Provider: 12/22/20 08:50 - History of Present Illness INITIAL COMMENTS - FREE TEXT/NARRATIVE: Patient presents complaining of vomiting resolved. Patient states that he was in [place] and then came back over the weekend. Several days thereafter he started vomiting about 20 times and has since self resolved. He is passing gas. No diarrhea. No fever. No headache. No chest pain. No exacerbating relieving factor. Patient states he has had the symptoms in the past. - Related Data Allergies Allergy/AdvReac Type Severity Reaction Status Date / Time No Known Allergies Allergy Verified 12/22/20 08:15 Home Meds: Home Meds Apixaban [Eliquis] 1 tab PO DAILY 01/23/17 [History] Metoprolol Tartrate [Lopressor] 1 tab PO DAILY 01/23/17 [History] Past Medical History HEENT History: Reports: None Cardiovascular History: Reports: Afib, Blood Clots/VTE/DVT Respiratory History: Reports: None Gastrointestinal History: Reports: None Genitourinary History: Reports: None Musculoskeletal History: Reports: None Neurological History: Reports: None Psychiatric History: Reports: None Endocrine/Metabolic History: Reports: None Hematologic History: Reports: None Immunologic History: Reports: None Oncologic (Cancer) History: Reports: None Dermatologic History: Reports: Other (See Below) Other Dermatologic History: Vein Surgery - Infectious Disease History Infectious Disease History: Reports: Chicken Pox - Past Surgical History Head Surgeries/Procedures: Reports: None HEENT Surgical History: Reports: None Cardiovascular Surgical History: Reports: None Respiratory Surgical History: Reports: None GI Surgical History: Reports: None Male Surgical History: Reports: Prostatectomy Endocrine Surgical History: Reports: None Neurological Surgical History: Reports: None Musculoskeletal Surgical History: Reports: Shoulder Surgery Oncologic Surgical History: Reports: None Dermatological Surgical History: Reports: None Social & Family History - Family History Family Medical History: No Pertinent Family History - Caffeine Use Caffeine Use: Reports: None - Recreational Drug Use Recreational Drug Use: No ED ROS GENERAL - Review of Systems Review Of Systems: See Below Constitutional: Denies: Fever Respiratory: Denies: Shortness of Breath, Cough Cardiovascular: Denies: Chest Pain GI/Abdominal: Reports: Vomiting Musculoskeletal: Reports: No Symptoms Neurological: Denies: Headache ED EXAM, GENERAL - Physical Exam Exam: See Below Free Text/Narrative:: CONSTITUTIONAL: well appearing in no acute distress SKIN: dry, and intact without rash HENT: Normocephalic, atraumatic, NECK: normal range of motion PULMONARY: normal chest rise and fall, no respiratory distress or stridor : Abdomen soft nontender nondistended. No guarding or rebound or rigidity NEUROLOGIC: normal speech, moves all extremities, grossly non-focal MUSCULOSKELETAL: no gross deformities, atraumatic PSYCHIATRIC: normal mood and affect Course - Vital Signs Text/Narrative:: Differential diagnosis: Small bowel obstruction, pancreatitis, biliary colic, [employer] pathology, ACS, to light derangements, other Patient presents with nausea and vomiting. Patient symptoms have resolved but patient would have testing including but not limited to EKG and laboratory testing to ensure that there is no metabolic derangements or signs of infection or other pathology. The patient this time refuses any work-up at this time. Pt alert and oriented. Pt understandings risks of significant morbidity and/or mortality. Pt is able to discuss illustrating understanding. Pt has capacity to make own decisions and is signing out against medical advice. Last Recorded V/S: Last Vital Signs Temp 36.1 C 12/22/20 08:13 Pulse 73 12/22/20 09:01 Resp 18 12/22/20 09:01 BP 137/79 12/22/20 09:01 Pulse Ox 94 L 12/22/20 09:01 Departure - Departure Time of Disposition: 08:48 Disposition: Against Medical Advice 07 Condition: Good Clinical Impression: Vomiting - Discharge Information Instructions: Nausea and Vomiting, Adult Referrals: PCP,Not In Area [Primary Care Provider] - Forms: ED Department Discharge Additional Instructions: Return for vomiting, abdominal pain, chest discomfort, headache, change or worsening condition, or if you change your mind and would like testing and evaluation. Sepsis Event Note (ED) - Evaluation Sepsis Screening Result: No Definite Risk - Focused Exam Vital Signs: Vital Signs Temp Pulse Resp BP Pulse Ox 12/22/20 09:01 73 18 137/79 94 L 12/22/20 08:13 36.1 C 96 18 138/82 98
== END 2020-12-22 09:02 | disposition left against medical advice (07) ==
LOC: MW.ED 08:00
DX: R11.10 Vomiting, unspecified (principal); I48.91 Unspecified atrial fibrillation; Z86.718 Personal history of other venous thrombosis and embolism; Z79.01 Long term (current) use of anticoagulants
CPT/HCPCS: 99283